=== PATIENT | female | born 1990 | race Native Hawaiian/Other Pacific Islander ===

== ENCOUNTER 2017-01-21 13:16 | Day surgery (SDC) | payer BC ==
[2017-01-21 13:55] LABS: BASOPHIL 0.2 % (0-2.0); EOSINOPHIL 0.8 % (0-4.5); MCH 28.9 pg (25.7-33.7); MCHC 32.5 g/dl (32.0-36.0); MEAN CELL VOLUME 88.9 fl (80-96); MEAN PLT VOLUME 6.7 fl (7.5-11.1); NEUTROPHILS 62.6 % (42.8-82.8); PLATELET COUNT 274 K/MM3 (134-434); RDW 13.9 % (11.6-15.6); WHITE BLOOD COUNT 7.9 K/mm3 (4.0-10.0)
[2017-01-21 14:01] VITALS: BMI 33.5
[2017-01-21 14:18] LABS: INR 1.12 (0.82-1.09); PROTHROMBIN TIME (PATIENT) 12.4 SEC (9.98-11.88)
[2017-01-21 14:19] LABS: ALBUMIN 3.5 g/dl (3.4-5.0); ALK PHOS 327 U/L (45-117); ANION GAP 10 (8-16); CALCIUM 9.1 mg/dL (8.5-10.1); CO2 26 mmol/L (21-32); CREATININE 0.8 mg/dL (0.55-1.02); GLUCOSE,RANDOM 76 mg/dL (74-106); SGOT/AST 38 U/L (15-37); SGPT/ALT 70 U/L (12-78); TOT PROT 7.7 g/dl (6.4-8.2)
[2017-01-21 14:21] LABS: ACTIVATED PTT 33.1 SECONDS (26.9-34.4)
[2017-01-21] MEDS ORDERED: MIDAZOLAM HCL 2 MG/2 ML SINGLE DOSE VIAL ONE (14:47)
[2017-01-21] MEDS ORDERED: PROPOFOL 20 ML ONE ×2 (14:47→14:59)
--- NOTE | 2017-01-21 14:51 | HP ---
Past Medical History - Primary Care Physician PCP:: Jesus Law - Admission Chief Complaint: 26yo P0 with menometrorrhagia admitted for hystereoscopy, D&C History of Present Illness: The pt presented with abnormal uterine bleeding for over 6 months and anemia. She previously had IUD in place that was displaced and removed. However, the bleeding continued. 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: No: Alzheimer's, CVA, Dementia, Migraine, Multiple Sclerosis, Peripheral Neuropathy, Parkinson's, Seizure, Syncope, TIA, Vertigo, Other Cardiovascular: No: AFIB, Aneurysm, Aortic Insufficiency, Aortic Stenosis, CAD, CHF, Deep Vein Thrombosis, HTN, Hyperlipdemia, OH, Mitral Insufficiency, Mitral Stenosis, Murmur, Pulmonary Hypertension, Other Pulmonary: No: Asthma, Bronchitis, Cancer, COPD, O2 Dependent, Pneumonia, Previously Intubated, Pulmonary Embolus, Pulmonary Fibrosis, Sleep Apnea, Other Gastrointestinal: No: Ascites, Cancer, Constipation, Crohn's Disease, Diverticulitis, Diverticulosis, Esophageal Varices, Gastritis, GERD, GI Bleed, Hemorrhoids, Hiatal Hernia, Inflamatory Bowel Disease, Irritable Bowel Disease, Pancreatitis, Peptic Ulcer Disease, Ulcerative Colitis, Other Hepatobiliary: Yes: Other (Liver bx 2013 - non-specific chronic inflammation. Neg for steatosis, cholestasis, siderosis, firbrosis, granulomas, malignancy D- PAS, trichrome, and iron stains done) Renal/: No: Renal Failure, Renal Inusuff, BPH, Cancer, Hematuria, Hemodialysis , Neurogenic Bladder, Renal Calculi, UTI, Other Reproductive: No: Ectopic , Endometriosis, Fibroids, PID, Polycystic Ovary Syndrome, Postmenopausal, Other ...Para: 0 Heme/Onc: Yes: Anemia Infectious Disease: No: AIDS, C-Diff, Herpes Zoster, HIV, MRSA, STD's, Tuberculosis, VREF, Other Psych: No: Addictions, Anxiety, Bipolar, Depression, Panic, Psychosis, Schizophrenia, Other Musculoskeletal: No: Bursitis, Chronic low back pain, Hemiparesis, Hemiplegia, Osteoarthritis, Paraplegia, Other Rheumatology: No: Fibromyalgia, Gout, Lupus, Rheumatoid Arthritis, Sarcoidosis, Vasculitis, Other Endocrine: No: [place]'s Disease, Leighton's Disease, Diabetes Insipidus, Diabetes Mellitus, Hyperparathyroidism, Hyperthyroidism, Hypothyroidism, Osteopenia, SIADH, Other Dermatology: No: Basal Cell, Cellulitis, Eczema, Melanoma, Psoriasis, Squamous Cell, Other - Past Surgical History Past Surgical History: Yes: Bariatric Surgery (gastric sleeve) Hx Myomectomy: No Hx Transabdominal Cerclage: No - Smoking History Smoking history: Never smoked Have you smoked in the past 12 months: No - Alcohol/Substance Use Hx Alcohol Use: No History of Substance Use: reports: None - Social History Usual Living Arrangement: Yes: Alone ADL: Independent History of Recent Travel: No Home Medications - Allergies Allergies/Adverse Reactions: Allergies Allergy/AdvReac Type Severity Reaction Status Date / Time Iodine and Iodide Containing Allergy Severe Swelling Verified 01/21/17 14:03 Produc peanut Allergy Severe Swelling Verified 01/21/17 14:02 BCP Allergy Severe Low Blood Uncoded 01/21/17 14:01 Pressure - Home Medications Home Medications: Ambulatory Orders Metformin HCl [Metformin HCl ER] 500 mg PO AC 01/21/17 Family Disease History - Family Disease History Family History: Denies Review of Systems - Review of Systems Constitutional: reports: Weakness Eyes: reports: No Symptoms HENT: reports: No Symptoms Neck: reports: No Symptoms Cardiovascular: reports: No Symptoms Respiratory: reports: No Symptoms Gastrointestinal: reports: No Symptoms Genitourinary: reports: Vaginal Bleeding Breasts: reports: No Symptoms Reported Musculoskeletal: reports: No Symptoms Integumentary: reports: No Symptoms Neurological: reports: No Symptoms Endocrine: reports: No Symptoms Hematology/Lymphatic: reports: No Symptoms Psychiatric: reports: No Symptoms Pain Intensity: 0 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: Vital Signs Temperature 98.4 F 01/21/17 14:07 Pulse Rate 80 01/21/17 14:07 Respiratory Rate 18 01/21/17 14:07 Blood Pressure 94/61 01/21/17 14:07 O2 Sat by Pulse Oximetry (%) Constitutional: Yes: Well Nourished, No Distress, Calm Eyes: Yes: WNL, Conjunctiva Clear HENT: Yes: WNL, Atraumatic, Normocephalic Neck: Yes: WNL, Supple, Trachea Midline Cardiovascular: Yes: WNL, Regular Rate and Rhythm Respiratory: Yes: WNL, Regular, CTA Bilaterally Gastrointestinal: Yes: WNL, Normal Bowel Sounds, Soft ...Rectal Exam: Yes: Deferred Renal/: Yes: WNL Pelvis: Yes: WNL External Genitalia: Yes: Normal Internal Exam Deferred: No Vaginal Exam: Yes: Bleeding Cervix: Yes: Normal Uterus: Yes: Normal, Freely Moveable, Anteverted Adnexa: Normal: Left, Right Breast(s): Yes: WNL Musculoskeletal: Yes: WNL Extremities: Yes: WNL Edema: No Integumentary: Yes: WNL Neurological: Yes: WNL, Alert, Oriented ...Motor Strength: WNL Psychiatric: Yes: WNL, Alert, Oriented Labs: CBC, BMP 01/21/17 13:35 01/21/17 13:35 Imaging - Results Ultrasound: Report Reviewed Assessment/Plan 26yo P0 with menometrorrhagia and anemia admitted for D&C, hysteroscopy. We had discussed the risks, benefits, alternatives of surgery at length including but not limited to infection, bleeding, scarring, perforation, amenorrhea, infertility, hysterectomy, etc. The pt verbalized understanding and requested to proceed with surgery. I emphasized that all surgeries have risks and no guarantees can be provided
[2017-01-21] MEDS ORDERED: oxyCODONE HCL 5 MG TABLET PO PRN ×2 (14:53)
[2017-01-21] MEDS ORDERED: ONDANSETRON 4 MG/2 ML VIAL IVPUSH PRN (14:53)
[2017-01-21] MEDS ORDERED: LIDOCAINE HCL/PF 2% SDV 5ML VIAL ONE (14:59)
[2017-01-21] MEDS ORDERED: ceFAZolin SODIUM 1 GM VIAL IVPB ONE (15:00)
[2017-01-21] MEDS ORDERED: LACTATED RINGERS SOLUTION 1,000 ML IV SCH (15:00)
[2017-01-21] MEDS ORDERED: ceFAZolin SODIUM 1 GM VIAL ONE (15:05)
[2017-01-21] MEDS ORDERED: KETOROLAC TROMETHAMINE 30 MG/1 ML VIAL ONE (15:27)
--- NOTE | 2017-01-21 16:08 | OP ---
Operative Note - Note: Operative Date: 01/21/17 Pre-Operative Diagnosis: Menometrorrhagia, anemia Operation: Hysteroscopy, D&C Findings: Normal uterine cavity with thick endometrium Post-Operative Diagnosis: Same as Pre-op Surgeon: Jesus Law Anesthesiologist/CONTROL TOWER RADIO OPERATOR: Miley Crooks (Block) Anesthesia: General Specimens Removed: Endometrial curettings Estimated Blood Loss (mls): 5 Blood Volume Replaced (mls): 0 Fluid Volume Replaced (mls): 500 Operative Report Dictated: Yes
[2017-01-21 16:52] VITALS: TEMP 97.6
[2017-01-21 17:28] VITALS: BP 108/62; PULSE 55
--- NOTE | 2017-01-22 08:16 | OP ---
DATE OF OPERATION: 01/21/2017 PREOPERATIVE DIAGNOSES: Menometrorrhagia, anemia. POSTOPERATIVE DIAGNOSES: Menometrorrhagia, anemia. PROCEDURE: Hysteroscopy, dilatation and curettage. SURGEON: Calixto Chavarria MD ANESTHESIOLOGIST: Miley Crooks MD and ANESTHESIA: General. COMPLICATIONS: None. PATHOLOGY: Endometrial curettings. ESTIMATED BLOOD LOSS: 5 mL URINE OUTPUT: Not tracked. INTRAVENOUS FLUIDS: 500 mL of crystalloids. FINDINGS: Examination under anesthesia revealed a small anteverted uterus. Hysteroscopy revealed a normal uterine cavity with thick endometrial lining. No discrete lesions were noted. A normal-appearing cavity was also visualized with hysteroscopy at the end of the procedure. DESCRIPTION OF PROCEDURE: The patient was met preoperatively. Risks, benefits, and alternatives of surgery were discussed. All questions were answered. The patient was explained the options of expectant management, of contraceptive pills (she reports allergy to CONTROL PILLS), hormonal medications (abnormal liver function tests are noted), as well as the options of hormonal IUD and D&C. The patient prefers to proceed with a D&C. The risks of a D&C were explained including, but not limited to, infection, bleeding, scarring, infertility, absent menses, etc. Patient verbalized her understanding and wished to proceed with surgery. The patient was brought to the OR. She was placed on the surgical table in the supine position. The anesthesia was induced without difficulty. The patient was then placed in a dorsal lithotomy position using adjustable Jcarlos stirrups. She was examined under anesthesia with the findings as described above. The patient was then prepped and draped in the usual sterile fashion. A timeout protocol was conducted as per standard procedure. The surgeon then proceeded with the operation. A weighted speculum was introduced inside the vagina. A vaginal wall retractor was also used to visualize the cervix. The cervix was grasped with the single-tooth tenaculum. A 3-mm hysteroscope was gently introduced inside the uterine cavity. No cervical dilation was required. The findings were as described above. The hysteroscope was then removed, and the cervix was gently dilated to accommodate size 21 Mujica dilator. A curettage was performed without complication. All the tissue was submitted to Pathology for evaluation. Once the curettage was completed, a hysteroscope was once again introduced inside the uterine cavity. A normal uterine cavity was observed with good hemostasis. The hysteroscope was removed. All of the instruments were removed from the patient. Sponge, lap, and instrument counts were correct. The patient was then transferred to recovery room in stable condition and awake. CALIXTO CHAVARRIA M.D. [id number]
--- NOTE | 2017-01-23 12:13 | PATH ---
Surgical Pathology Report Patient Name: MATT RAMIRES [facility]. Rec. #: [id number] /Age/Gender: 1990 (Age: 26) / F Account: [id number] Location: [facility] SURGICAL Taken: 01/21/2017 Received: 01/22/2017 Reported: 01/23/2017 Physicians: Jesus Law M.D. Specimen(s) Received ENDOMETRIAL CURETTINGS Clinical History Menorrhagia, anemia Final Diagnosis ENDOMETRIUM, CURETTING: DISORDERED PROLIFERATIVE ENDOMETRIUM WITH AREAS SUGGESTIVE OF BENIGN ENDOMETRIAL POLYP. AREAS OF STROMAL BREAKDOWN ARE PRESENT. NO DEFINITE ENDOMETRITIS IDENTIFIED. NO ENDOMETRIAL HYPERPLASIA OR CARCINOMA IDENTIFIED. Electronically Signed Castro Bosch M.D. Gross Description Received in formalin labeled "endometrial curettings," is a 4.0 x 2.8 x 0.8 cm aggregate of flores soft tissue fragments. The formalin is filtered and the specimen is entirely submitted in 3 cassettes. /01/22/2017 saudi01/22/2017
== END 2017-01-21 17:28 | disposition home or self-care (01) ==
LOC: JASU-SURG 13:16 → JOR 13:16 → JASU-SURG 17:28
PROVIDERS: ATTEND Obstetrics & Gynecology
PROC: 0UDB8ZX Extraction of Endometrium, Via Natural or Artificial Opening Endoscopic, Diagnostic (ICD-10-PCS; principal; 2017-01-21 14:30)
DX: N92.0 Excessive and frequent menstruation with regular cycle (principal); D64.9 Anemia, unspecified
CPT/HCPCS: 36415; 80053; 84703; 85025; 85610; 85730; 86850; 86900; 86901; 88305-TC; 94760

== ENCOUNTER 2023-01-12 04:09 | Day surgery (SDC) | payer OTHER ==
[2023-01-07 12:30] VITALS: BMI 40.1
[2023-01-12] MEDS ORDERED: PROPOFOL 20 ML ONE ×2 (13:12→13:37)
[2023-01-12] MEDS ORDERED: MIDAZOLAM HCL 2 MG/2 ML SINGLE DOSE VIAL ONE (13:13)
[2023-01-12] MEDS ORDERED: ceFAZolin SODIUM 1 GM VIAL ONE ×2 (13:27)
[2023-01-12] MEDS ORDERED: ceFAZolin SODIUM 1 GM VIAL IVPB ONE (13:30)
[2023-01-12] MEDS ORDERED: LACTATED RINGERS SOLUTION 1,000 ML IV SCH (14:00)
[2023-01-12] MEDS ORDERED: ONDANSETRON 4 MG/2 ML VIAL IVPUSH PRN (14:00)
[2023-01-12] MEDS ORDERED: ACETAMINOPHEN 325 MG TABLET (FP) PO PRN (14:00)
[2023-01-12] MEDS ORDERED: oxyCODONE HCL 5 MG TABLET PO PRN (14:00)
[2023-01-12 15:13] VITALS: RESP 20; TEMP 97.8
[2023-01-12 16:35] VITALS: BP 105/57; PULSE 55
== END 2023-01-12 16:02 | disposition home or self-care (01) ==
LOC: JASU-SURG 04:09
PROVIDERS: ATTEND Obstetrics & Gynecology
PROC: 0UDB8ZX Extraction of Endometrium, Via Natural or Artificial Opening Endoscopic, Diagnostic (ICD-10-PCS; principal; 2023-01-12 12:00)
DX: N92.1 Excessive and frequent menstruation with irregular cycle (principal)
CPT/HCPCS: 88305-TC; 94760